=== PATIENT | female | born 1945 | race Caucasian/White ===

== ENCOUNTER → 2020-12-05 08:00 | Outpatient (CLI) | payer MEDICARE, OTHER, SELFPAY ==
[2020-12-05] MEDS: COVID-19 VACC #1, MRNA(MOD) 100 MCG/0.5 ML VIAL IM (08:07)
== END ==
PROVIDERS: Family Provider Internal Medicine; PCP Internal Medicine; Visit Provider Internal Medicine
DX: Z23 Encounter for immunization (principal)
CPT/HCPCS: 0011A; 91301

== ENCOUNTER → 2021-01-02 08:01 | Outpatient (CLI) | payer MEDICARE, OTHER, SELFPAY ==
[2021-01-02] MEDS: COVID-19 VACC #2, MRNA(MOD) 100 MCG/0.5 ML VIAL IM (08:04)
== END ==
PROVIDERS: PCP Internal Medicine; Visit Provider Internal Medicine
DX: Z23 Encounter for immunization (principal)
CPT/HCPCS: 0012A; 91301